=== PATIENT | female | born 1995 | race Asian ===

== ENCOUNTER 2017-02-19 21:51 | Emergency (ER) | payer OTHER ==
[2017-02-19 23:45] VITALS: BP 119/78
--- NOTE | 2017-02-20 01:14 | ED ---
Sandy Torres Rebecca, scribed for Jefferson Munguia MD on 02/19/17 at 2321 . Upper Extremity Pain - HPI Summary HPI Summary: Pt is a 21 y/o F who presents to ED s/p 2 incidences of her L hand "freezing up. " Pt reports that at approximately 2000 tonight her L hand "froze up" and she "couldn't move it for a while." Both incidences occurred within about 15-20 minutes and involved predominantly 2nd through 5th digits, with minor thumb involvement. The first episode occurred while washing and drying dishes and the second occurred while at rest. Sx aggravated by making a fist, resolved by massage. Additionally c/o mild tingling and pain at the time of episodes, which is now resolved. Denies any fever, chills, swelling of the L hand, elbow pain and neck pain. Reports that both of her hands feel as though they are the same temperature. States that her hands and feet are cold at baseline. No recent trauma to the hand, recent illness or new medications. FHx arthritis. Right hand dominant. - History of Current Complaint Chief Complaint: EDExtremityUpper Stated Complaint: LT HAND NUMBNESS Time Seen by Provider: 02/19/17 23:00 Hx Obtained From: Patient Onset/Duration: Started Hours Ago, Resolved Severity Currently: None Pain Location: Hand - L hand Aggravating Factor(s): Other - Making a fist Alleviating Factor(s): Other - Massage Associated Signs & Symptoms: Positive: Numbness/Tingling - L hand tingling - resolved. Negative: Neck Pain Related History: Dominant Hand Right - Allergies/Home Medications Allergies/Adverse Reactions: Allergies Allergy/AdvReac Type Severity Reaction Status Date / Time No Known Allergies Allergy Verified 02/19/17 21:54 PMH/Surg Hx/FS Hx/Imm Hx Previously Healthy: Yes Endocrine/Hematology History: Denies: Hx Diabetes Cardiovascular History: Denies: Hx Coronary Artery Disease Musculoskeletal History: Denies: Hx Arthritis Infectious Disease History: No Infectious Disease History: Denies: Traveled Outside the [place] in Last 30 Days - Family History Known Family History: Positive: Other - Arthritis - Social History Occupation: Student Alcohol Use: Occasionally Substance Use Type: Reports: None Smoking Status (MU): Never Smoked Tobacco Review of Systems Negative: Fever Positive: Other - L hand "freezing", mild tingling and associated apin - all resolved; NEGTAIVE: swelling of the L hand and elbow or neck pain All Other Systems Reviewed And Are Negative: Yes Physical Exam - Summary Physical Exam Summary: The patient is well-nourished in no acute distress and in no acute pain. The skin is warm and dry and skin color reflects adequate perfusion. HEENT: The head is normocephalic and atraumatic. The pupils are equal and reactive. The conjunctivae are clear and without drainage. Nares are patent and without drainage. Mouth reveals moist mucous membranes and the throat is without erythema and exudate. The external ears are intact. The ear canals are patent and without drainage. The tympanic membranes are intact. Respiratory: Chest is non-tender. Lungs are clear to auscultation and breath sounds are symmetrical and equal. Cardiovascular: Hear is regular rate and rhythm. There is no murmur or rub auscultated. There is no peripheral edema and pulses are symmetrical and equal. Musculoskeletal: There is no back pain noted. Extremities are non-tender with full range of motion. There is good capillary refill. There are good pulses in both hands with good capillary refill. The radian, median and ulnar nerves are intact in the lef thand. There is no intra-osseous wasting. There is some decreased sensation over the ulnar distribution as compared to the radial with good capillary refill and good coloration. There appears to be no fibrosis over the palmar fascia. There appears to be no clicking with hre hand and there is no motor weakness. There is no tinel sign and positive phalen sign. No tenderness to percussion to her lecranon and she has good colroation, good skin turgor. Her hands are warm and there is no cyanosis. Neurological: Patient is alert and oriented to person, place and time. The patient has symmetrical motor strength in all four extremities. Psychiatric: The patient has an appropriate affect and does not exhibit any anxiety or depression. Triage Information Reviewed: Yes Vital Signs On Initial Exam: Initial Vitals Temp Pulse Resp BP Pulse Ox 98.3 F 94 16 128/81 100 02/19/17 21:56 02/19/17 21:56 02/19/17 21:56 02/19/17 21:56 02/19/17 21:56 Vital Signs Reviewed: Yes Diagnostics - Vital Signs Vital Signs Temp Pulse Resp BP Pulse Ox 02/19/17 21:56 98.3 F 94 16 128/81 100 - Laboratory Lab Statement: Any lab studies that have been ordered have been reviewed, and results considered in the medical decision making process. Course/Dx - Course Assessment/Plan: Pt is a 21 y/o F who presents to ED s/p 2 incidences of her L hand "freezing up." Pt reports that at approximately 2000 tonight her L hand "froze up" and she "couldn't move it for a while." Both incidences occurred within about 15-20 minutes and involved predominantly 2nd through 5th digits, with minor thumb involvement. The first episode occurred while washing and drying dishes and the second occurred while at rest. Sx aggravated by making a fist, resolved by massage. Additionally c/o mild tingling and pain at the time of episodes, which is now resolved. Denies any fever, chills, swelling of the L hand, elbow pain and neck pain. Reports that both of her hands feel as though they are the same temperature. States that her hands and feet are cold at baseline. No recent trauma to the hand, recent illness or new medications. FHx arthritis. Right hand dominant. PE reveals that there are good pulses in both hands with good capillary refill. The radian, median and ulnar nerves are intact in the lef thand. There is no intra-osseous wasting. There is some decreased sensation over the ulnar distribution as compared to the radial with good capillary refill and good coloration. There appears to be no fibrosis over the palmar fascia. There appears to be no clicking with hre hand and there is no motor weakness. There is no tinel sign and positive phalen sign. No tenderness to percussion to her lecranon and she has good colroation, good skin turgor. Her hands are warm and there is no cyanosis. Concern for median nerve entrapment and trigger fingers. Will put her in a cock up splint and have her follow up with Dr. Tao and/or Dr. Callahan for definitive care. She will be D/C to home with Dx of medican nerve entrapment and hand pain and a follow up with Dr. Tao. She understands and agrees with this plan. ELevated BP noted and advised to f/u with PCP. - Diagnoses Differential Diagnosis/HQI/PQRI: Positive: Other - trigger finger, median nerve entrapment Provider Diagnoses: Median nerve entrapment, Hand pain, left Discharge - Discharge Plan Condition: Stable Disposition: HOME Patient Education Materials: Arthralgia (ED) Referrals: [facility] [Primary Care Provider] - Ramsey Tao MD [Medical Doctor] - The documentation as recorded by the Sandy grant Rebecca accurately reflects the service I personally performed and the decisions made by me, Jefferson Munguia MD.
== END 2017-02-19 23:43 | disposition home or self-care (01) ==
LOC: ED 21:51
DX: G56.02 Carpal tunnel syndrome, left upper limb (principal)
CPT/HCPCS: 99282